=== PATIENT | female | born 2000 | race Asian ===

== ENCOUNTER 2022-09-05 14:48 | Outpatient (CLI) | payer BC, SELFPAY ==
--- NOTE | 2022-09-05 15:00 | CRLHL7_ITS ---
For Patients: As a result of the 21st Century Cures Act, medical imaging exams and procedure reports are released immediately into your electronic medical record. You may view this report before your referring provider. If you have questions, please contact your health care provider. INDICATION: LEFT EAR Canal OSTEOMA TECHNIQUE: CT of the temporal bones without contrast. Coronal and axial small field of view reconstructions of both temporal bones are included. COMPARISON: No prior studies are available for comparison at this institution. FINDINGS: RIGHT temporal bone: Mild adherent cerumen located within the external auditory canal without obstruction. The tympanic membranes are not thickened. The right middle ear is clear. No material is present within the sinus tympani. The ossicles are normal in appearance and location with no erosions or dislocation. The otic capsule is normal in appearance. No sclerosis within the labyrinthine canal. No fistula between the labyrinth and the middle ear. The vestibule and semicircular canals are normal in morphology with no evidence of semicircular canal dehiscence. Normal cochlear morphology with appropriate number of turns. Vestibular aqueduct is normal in size. Facial nerve canal is intact and normal in course/caliber. Petrous apex is normal. Mild fluid is present within the posterior mastoid air cells laterally. The carotid canal and jugular foramen are normal. LEFT temporal bone: Well corticated osseous structure is located within the external auditory canal measuring 8 x 5 millimeters. This is located within the mid external auditory canal and the external auditory canal between the tympanic membrane and this ossicle is completely opacified. The tympanic membrane cannot be fully assessed due to the adjacent EAC obstruction. The left middle ear is clear. No material is present within the sinus tympani. The ossicles are normal in appearance and location with no erosions or dislocation. The otic capsule is normal in appearance. No sclerosis within the labyrinthine canal. No fistula between the labyrinth and the middle ear. The vestibule and semicircular canals are normal in morphology with no evidence of semicircular canal dehiscence. Normal cochlear morphology with appropriate number of turns. Vestibular aqueduct is normal in size. Facial nerve canal is intact and normal in course/caliber. Petrous apex is normal. Mild opacification a few mastoid air cells noted. The carotid canal and jugular foramen are normal. OTHER: No fracture or significant degenerative change, lytic or blastic process is demonstrated in the skull base or temporomandibular joints. The imaged intracranial structures are normal in appearance. Orbits are normal. Imaged soft tissue structures are normal in appearance. Mucous retention cyst in the right maxillary sinus is present measuring 2.2 x 1.3 cm. IMPRESSION: Left external auditory well-circumscribed ossicle measuring 8 x 5 millimeters resulting in EAC obstruction. Mild bilateral mastoid effusions. Right maxillary sinus mucous retention cyst. Please note that all CT scans at this facility use dose modulation, iterative reconstruction, and/or weight-based dosing when appropriate to reduce radiation dose to as low as reasonably achievable. Dictated by Beka Epstein MD @ 09/06/2022 1:44:11 PM (Electronically Signed)
== END 2022-09-05 14:49 | disposition home or self-care (01) ==
LOC: CT 14:55
PROVIDERS: Visit Provider Physician Assistant
DX: D16.9 Benign neoplasm of bone and articular cartilage, unspecified (principal); J32.0 Chronic maxillary sinusitis
CPT/HCPCS: 70480